=== PATIENT | female | born 1960 | race Two or more races ===

== ENCOUNTER 2019-07-07 07:20 | Outpatient (CLI) | payer OTHER | END 2019-07-07 23:59 | disposition home or self-care (01) | LOC: RAD 07:20 → CFH 23:59 | PROVIDERS: ATTEND Family Medicine | DX: Z13.820 Encounter for screening for osteoporosis (principal); R22.33 Localized swelling, mass and lump, upper limb, bilateral; M79.601 Pain in right arm; M79.602 Pain in left arm | CPT/HCPCS: 77080; 93970 ==